=== PATIENT | male | born 1940 | race Caucasian/White ===

== ENCOUNTER 2017-06-15 11:19 | Emergency (ER) | payer MEDICARE ==
[~2017-06-15] VITALS: Ht 170.2 cm; Wt 78.2 kg
[2017-06-15] MEDS ORDERED: FUROSEMIDE40 MG PO (11:51)
[2017-06-15] MEDS ORDERED: CLOPIDOGREL75 MG PO (11:51)
[2017-06-15] MEDS ORDERED: CARVEDILOL25 MG PO (11:53)
[2017-06-15] MEDS ORDERED: LIPITOR20 MG PO (11:53)
[2017-06-15] MEDS ORDERED: ADVAIR DISK1 IN (11:54)
[2017-06-15] MEDS ORDERED: ENALAPRIL10 MG PO (11:54)
[2017-06-15] MEDS ORDERED: ALLOPURINOL100 MG PO (11:54)
[2017-06-15] MEDS ORDERED: VITAMIN B-12500 MCG PO (11:55)
[2017-06-15] MEDS ORDERED: [UNRECOGNIZED DRUG - OTHER] PO (11:57)
[2017-06-15] MEDS ORDERED: VITAMIN C500 M6 PO (11:57)
[2017-06-15] MEDS ORDERED: MAGNESIUM PO (11:57)
[2017-06-15] MEDS ORDERED: GLUCOSAMINE PO (11:58)
[2017-06-15] MEDS ORDERED: CHO PO (11:58)
[2017-06-15 12:31] LABS: URINE BILIRUBIN - DIPSTICK NEGATIVE (NEGATIVE); URINE BLOOD DIPSTICK NEGATIVE (NEGATIVE); URINE COLOR YELLOW; URINE GLUCOSE - DIPSTICK NEGATIVE (NEGATIVE); URINE KETONE TRACE mg/dL (NEGATIVE); URINE LEUK ESTERASE TRACE (NEGATIVE); URINE NITRITE - DIPSTICK NEGATIVE (Negative); URINE PROTEIN - DIPSTICK NEGATIVE (NEG-TRACE); URINE UROBILINOGEN - DIPSTICK 0.2 E.U./dL (0.2)
[2017-06-15 12:33] LABS: HEMATOCRIT 31.3 % (39.0-50.0); HEMOGLOBIN 10.4 g/dl (14.0-18.0); IMMATURE GRANULOCYTES 0.2 % (0.0-1.0); MEAN CORPUSCULAR HGB 31.2 pG CALC (26.0-32.0); MEAN CORPUSCULAR HGB CONC 33.2 g/L CALC (32.0-36.0); NEUT# 4.51 thou/uL (1.82-7.42); RED BLOOD COUNT 3.33 mill/uL (4.70-6.10); RED CELL DISTRI WIDTH 14.1 % (11.5-15.5); URINE CLARITY CLEAR
[2017-06-15 12:44] LABS: ALBUMIN 3.7 g/dL (3.2-5.0); ALKALINE PHOSPHATASE 123 u/l (38-126); ANION GAP 17 (6-22 (CALC)); BILIRUBIN, TOTAL 0.4 mg/dL (0.0-1.4); BUN 22 mg/dL (8-23); BUN/CREATININE RATIO 18 (12-20 (CALC)); CARBON DIOXIDE 22 mmol/l (22-30); CHLORIDE 105 mmol/l (95-108); CREATININE 1.3 mg/dL (0.7-1.3); GFR 54 ML/MIN (>=60 (CALC)); GFR FOR AFR.AMER. > 60 ML/MIN (>=60 (CALC)); POTASSIUM 4.3 mmol/l (3.5-5.1); SGOT/AST 28 u/l (19-48); SGPT/ALT 43 u/l (11-66); SODIUM 140 mmol/l (137-146); TOTAL PROTEIN 6.5 g/dL (6.3-8.2)
[2017-06-15] MEDS ORDERED: POTASSIUM CHLO20 ME1 PO (13:10)
[2017-06-15] MEDS ORDERED: LASIX 40 MG TAB40 MG PO (13:10)
[2017-06-15 13:37] VITALS: BP 128/56
== END 2017-06-15 13:35 | disposition home or self-care (01) ==
LOC: ED 11:19
PROVIDERS: Family Medicine
DX: I11.0 Hypertensive heart disease with heart failure (principal); I50.9 Heart failure, unspecified; M10.9 Gout, unspecified; J44.9 Chronic obstructive pulmonary disease, unspecified; Z95.0 Presence of cardiac pacemaker

== ENCOUNTER 2019-02-05 18:58 | Emergency (ER) | payer MEDICARE ==
[~2019-02-05] VITALS: Ht 170.2 cm; Wt 80.0 kg
[~2019-02-05 18:58] MED LIST: ADVAIR DISK1 IN; ALLOPURINOL100 MG PO; CARVEDILOL25 MG PO; CHO PO; CLOPIDOGREL75 MG PO; ENALAPRIL10 MG PO; FUROSEMIDE40 MG PO; GLUCOSAMINE PO; LASIX 40 MG TAB40 MG PO; LIPITOR20 MG PO; MAGNESIUM PO; POTASSIUM CHLO20 ME1 PO; VITAMIN B-12500 MCG PO; VITAMIN C500 M6 PO; [UNRECOGNIZED DRUG - OTHER] PO
[2019-02-05] MEDS ORDERED: KEFLEX500 MG PO (19:44)
[2019-02-05 20:06] VITALS: BP 125/53
== END 2019-02-05 20:12 | disposition home or self-care (01) ==
LOC: ED 18:58
DX: L73.9 Follicular disorder, unspecified (principal); I88.9 Nonspecific lymphadenitis, unspecified; J44.9 Chronic obstructive pulmonary disease, unspecified; I11.0 Hypertensive heart disease with heart failure; I50.9 Heart failure, unspecified; Z95.810 Presence of automatic (implantable) cardiac defibrillator

== ENCOUNTER 2019-04-25 17:42 | Emergency (ER) | payer MEDICARE ==
[~2019-04-25 17:42] MED LIST changes: +KEFLEX500 MG PO
[2019-04-25 18:24] VITALS: BP 142/50
== END 2019-04-25 19:10 | disposition left against medical advice (07) ==
LOC: ED 17:42 → LWOBS 19:10
DX: Z53.21 Procedure and treatment not carried out due to patient leaving prior to being seen by health care provider (principal)

== ENCOUNTER 2022-02-11 16:01 | Inpatient (IN) | payer MEDICARE ==
[~2022-02-11] VITALS: Ht 170.2 cm; Wt 74.0 kg
[~2022-02-11 16:01] MED LIST changes: -FUROSEMIDE40 MG PO; +LASIX40 MG PO; +MAGNESIUM 400 M1 TAB; -MAGNESIUM PO; -[UNRECOGNIZED DRUG - OTHER] PO
[2022-02-11 16:37] VITALS: BP 143/62
[2022-02-11] MEDS ORDERED: AZELASTINE HCL0.1 % (18:16)
[2022-02-11] MEDS ORDERED: ASPIRIN81 MG PO (18:19)
[2022-02-11] MEDS ORDERED: ENTRESTO 24-261 TAB PO (18:20)
[2022-02-11] MEDS ORDERED: EZETIMIBE10 MG PO (18:21)
[2022-02-11] MEDS ORDERED: FERRAPLUS 90 PO (18:24)
[2022-02-11] MEDS ORDERED: UNISOM SLEEP25 MG PO (18:25)
[2022-02-11] MEDS ORDERED: VITAMIN D31000 UNI1 PO (18:26)
[2022-02-11 19:00] VITALS: BP 129/52
[2022-02-11 21:28] LABS: HEMATOCRIT 31.9 % (39.0-50.0); HEMOGLOBIN 10.6 g/dl (14.0-18.0); MEAN CELL VOLUME 97.6 fL CALC (80.0-100.0); MEAN CORPUSCULAR HGB 32.4 pG CALC (26.0-32.0); MEAN CORPUSCULAR HGB CONC 33.2 g/dL CAL (32.0-36.0); RED BLOOD COUNT 3.27 mill/uL (4.70-6.10)
[2022-02-12] VITALS: BP 146/63
[2022-02-12 03:35] VITALS: BP 147/69
[2022-02-12 06:09] LABS: ALBUMIN 3.5 g/dL (3.2-5.0); BILIRUBIN, TOTAL 0.5 mg/dL (0.0-1.4); CREATININE 1.6 mg/dL (0.7-1.3); MAGNESIUM 2.3 mg/dL (1.6-2.3); POTASSIUM 4.3 mmol/l (3.5-5.1)
[2022-02-12 06:59] VITALS: BP 135/52
[2022-02-12 10:51] VITALS: BP 113/36
[2022-02-12 17:11] VITALS: BP 135/58
[2022-02-12 18:56] VITALS: BP 134/47
[2022-02-13 00:21] VITALS: BP 126/43
[2022-02-13 05:11] VITALS: BP 127/49
[2022-02-13 06:10] LABS: CREATININE 1.7 mg/dL (0.7-1.3); MAGNESIUM 2.1 mg/dL (1.6-2.3); POTASSIUM 4.1 mmol/l (3.5-5.1)
[2022-02-13 06:48] VITALS: BP 152/61
[2022-02-13] MEDS ORDERED: BUMETANIDE2 MG IN (09:30)
[2022-02-13 10:05] VITALS: BP 138/70
== END 2022-02-13 13:35 | disposition home or self-care (01) | DRG 291 ==
LOC: MS2 16:01
PROVIDERS: Internal Medicine Nephrology; ADMIT Internal Medicine; ATTEND Internal Medicine
DX: I13.0 Hypertensive heart and chronic kidney disease with heart failure and stage 1 through stage 4 chronic kidney disease, or unspecified chronic kidney disease (principal); I50.23 Acute on chronic systolic (congestive) heart failure; N17.9 Acute kidney failure, unspecified; N18.30 Chronic kidney disease, stage 3 unspecified; D63.1 Anemia in chronic kidney disease; I25.10 Atherosclerotic heart disease of native coronary artery without angina pectoris; I25.5 Ischemic cardiomyopathy; E78.5 Hyperlipidemia, unspecified; I73.9 Peripheral vascular disease, unspecified; I25.2 Old myocardial infarction; Z95.820 Peripheral vascular angioplasty status with implants and grafts; Z87.891 Personal history of nicotine dependence; Z95.5 Presence of coronary angioplasty implant and graft; Z95.810 Presence of automatic (implantable) cardiac defibrillator; J43.1 Panlobular emphysema
CPT/HCPCS: J1756

== ENCOUNTER 2022-03-21 12:33 | Inpatient (IN) | payer MEDICARE ==
[~2022-03-21] VITALS: Ht 170.2 cm; Wt 82.6 kg
[~2022-03-21 12:33] MED LIST changes: +ASPIRIN81 MG PO; +AZELASTINE HCL0.1 %; +BUMETANIDE2 MG IN; +ENTRESTO 24-261 TAB PO; +EZETIMIBE10 MG PO; +FERRAPLUS 90 PO; +UNISOM SLEEP25 MG PO; +VITAMIN D31000 UNI1 PO
[2022-03-21 12:45] VITALS: BP 120/60
[2022-03-21 13:26] LABS: BASO% 0.5 % (0-3); EOS% 2.2 % (0-8); HEMATOCRIT 28.6 % (39.0-50.0); HEMOGLOBIN 9.8 g/dl (14.0-18.0); IMMATURE GRANULOCYTES 0.2 % (0.0-5.0); LYMPH% 7.8 % (15-41); MEAN CELL VOLUME 95.7 fL CALC (80.0-100.0); MEAN CORPUSCULAR HGB 32.8 pG CALC (26.0-32.0); MEAN CORPUSCULAR HGB CONC 34.3 g/dL CAL (32.0-36.0); MONO% 8.8 % (2-13); NEUT# 5.14 thou/uL (1.82-7.42); NEUT% 80.5 % (42-76); RED BLOOD COUNT 2.99 mill/uL (4.70-6.10); RED CELL DISTRI WIDTH 14.8 % (11.5-15.5)
[2022-03-21 14:43] LABS: ALBUMIN 3.7 g/dL (3.2-5.0); BILIRUBIN, TOTAL 0.5 mg/dL (0.0-1.4); CREATININE 2.3 mg/dL (0.7-1.3); POTASSIUM 4.4 mmol/l (3.5-5.1); TOTAL PROTEIN 6.1 g/dL (6.3-8.2)
[2022-03-21 18:26] LABS: URINE BILIRUBIN - DIPSTICK NEGATIVE (NEGATIVE); URINE BLOOD DIPSTICK NEGATIVE (NEGATIVE); URINE COLOR YELLOW; URINE GLUCOSE - DIPSTICK NEGATIVE (NEGATIVE); URINE KETONE NEGATIVE (NEGATIVE); URINE LEUK ESTERASE MODERATE (NEGATIVE); URINE NITRITE - DIPSTICK NEGATIVE (Negative); URINE PH 5.5 (4.5-8.0); URINE PROTEIN - DIPSTICK NEGATIVE (NEG-TRACE); URINE SPECIFIC GRAVITY 1.015; URINE UROBILINOGEN - DIPSTICK 0.2 E.U./dL (0.2)
[2022-03-21 18:32] LABS: URINE TRANSITIONAL EPI. CELLS RARE hpf; URINE WBC 0-2 WBC/hpf (0-5)
[2022-03-21 20:00] VITALS: BP 135/69
[2022-03-21 20:21] VITALS: BP 135/69
[2022-03-22] VITALS (8 sets, daily range): BP systolic 99–147; BP diastolic 47–96
[2022-03-22 05:37] LABS: BASO% 0.5 % (0-3); EOS% 2.4 % (0-8); HEMATOCRIT 27.7 % (39.0-50.0); HEMOGLOBIN 9.7 g/dl (14.0-18.0); IMMATURE GRANULOCYTES 0.3 % (0.0-5.0); LYMPH% 10.2 % (15-41); MEAN CELL VOLUME 95.2 fL CALC (80.0-100.0); MEAN CORPUSCULAR HGB 33.3 pG CALC (26.0-32.0); MONO% 11.9 % (2-13); NEUT# 4.88 thou/uL (1.82-7.42); NEUT% 74.7 % (42-76); RED BLOOD COUNT 2.91 mill/uL (4.70-6.10); RED CELL DISTRI WIDTH 14.7 % (11.5-15.5)
[2022-03-22 05:45] LABS: ALBUMIN 3.4 g/dL (3.2-5.0); BILIRUBIN, TOTAL 0.3 mg/dL (0.0-1.4); CREATININE 2.3 mg/dL (0.7-1.3); POTASSIUM 4.5 mmol/l (3.5-5.1); TOTAL PROTEIN 5.5 g/dL (6.3-8.2)
[2022-03-23 04:00] VITALS: BP 121/56
[2022-03-23 04:18] VITALS: BP 121/56
[2022-03-23 06:41] VITALS: BP 120/58
[2022-03-23 14:21] LABS: CREATININE 2.3 mg/dL (0.7-1.3); POTASSIUM 4.9 mmol/l (3.5-5.1)
[2022-03-23 16:10] VITALS: BP 140/65
[2022-03-23 18:58] VITALS: BP 124/65
[2022-03-24] VITALS (9 sets, daily range): BP systolic 111–132; BP diastolic 43–66
[2022-03-24 05:28] LABS: BASO% 0.5 % (0-3); HEMATOCRIT 27.7 % (39.0-50.0); HEMOGLOBIN 9.6 g/dl (14.0-18.0); IMMATURE GRANULOCYTES 0.2 % (0.0-5.0); LYMPH% 9.9 % (15-41); MEAN CELL VOLUME 94.9 fL CALC (80.0-100.0); MEAN CORPUSCULAR HGB 32.9 pG CALC (26.0-32.0); MEAN CORPUSCULAR HGB CONC 34.7 g/dL CAL (32.0-36.0); MONO% 12.1 % (2-13); NEUT# 4.48 thou/uL (1.82-7.42); NEUT% 75.3 % (42-76); RED BLOOD COUNT 2.92 mill/uL (4.70-6.10); RED CELL DISTRI WIDTH 14.6 % (11.5-15.5)
[2022-03-24 05:53] LABS: ALBUMIN 3.3 g/dL (3.2-5.0); CREATININE 2.3 mg/dL (0.7-1.3); TOTAL PROTEIN 5.7 g/dL (6.3-8.2)
[2022-03-24 05:54] LABS: BILIRUBIN, TOTAL 0.5 mg/dL (0.0-1.4); POTASSIUM 3.9 mmol/l (3.5-5.1)
[2022-03-25 06:03] LABS: BASO% 0.5 % (0-3); EOS% 3.1 % (0-8); HEMATOCRIT 28.5 % (39.0-50.0); HEMOGLOBIN 10.1 g/dl (14.0-18.0); IMMATURE GRANULOCYTES 0.2 % (0.0-5.0); LYMPH% 10.2 % (15-41); MEAN CELL VOLUME 96.3 fL CALC (80.0-100.0); MEAN CORPUSCULAR HGB 34.1 pG CALC (26.0-32.0); MEAN CORPUSCULAR HGB CONC 35.4 g/dL CAL (32.0-36.0); MONO% 11.7 % (2-13); NEUT# 4.57 thou/uL (1.82-7.42); NEUT% 74.3 % (42-76); RED BLOOD COUNT 2.96 mill/uL (4.70-6.10); RED CELL DISTRI WIDTH 14.9 % (11.5-15.5)
[2022-03-25 06:14] LABS: ALBUMIN 3.8 g/dL (3.2-5.0); BILIRUBIN, TOTAL 0.6 mg/dL (0.0-1.4); CREATININE 2.8 mg/dL (0.7-1.3); POTASSIUM 3.4 mmol/l (3.5-5.1); TOTAL PROTEIN 6.2 g/dL (6.3-8.2)
[2022-03-25 07:25] VITALS: BP 141/66
[2022-03-25 10:42] VITALS: BP 125/60
[2022-03-25 15:22] VITALS: BP 132/78
[2022-03-26 05:57] LABS: BASO% 0.4 % (0-3); HEMATOCRIT 27.3 % (39.0-50.0); HEMOGLOBIN 9.5 g/dl (14.0-18.0); IMMATURE GRANULOCYTES 0.1 % (0.0-5.0); LYMPH% 9.9 % (15-41); MEAN CELL VOLUME 95.1 fL CALC (80.0-100.0); MEAN CORPUSCULAR HGB 33.1 pG CALC (26.0-32.0); MEAN CORPUSCULAR HGB CONC 34.8 g/dL CAL (32.0-36.0); MONO% 11.8 % (2-13); NEUT% 74.8 % (42-76); RED BLOOD COUNT 2.87 mill/uL (4.70-6.10); RED CELL DISTRI WIDTH 14.9 % (11.5-15.5)
[2022-03-26 06:23] LABS: ALBUMIN 3.6 g/dL (3.2-5.0); BILIRUBIN, TOTAL 0.3 mg/dL (0.0-1.4); CREATININE 2.7 mg/dL (0.7-1.3); POTASSIUM 2.9 mmol/l (3.5-5.1)
[2022-03-26 06:50] VITALS: BP 138/70
[2022-03-26 10:48] VITALS: BP 119/43
[2022-03-26 16:53] VITALS: BP 145/65
[2022-03-26 19:32] VITALS: BP 130/47
[2022-03-27] VITALS (41 sets, daily range): BP systolic 106–175; BP diastolic 46–135
[2022-03-27 06:03] LABS: BASO% 0.4 % (0-3); EOS% 2.5 % (0-8); HEMATOCRIT 29.2 % (39.0-50.0); HEMOGLOBIN 9.8 g/dl (14.0-18.0); IMMATURE GRANULOCYTES 0.1 % (0.0-5.0); LYMPH% 8.8 % (15-41); MEAN CELL VOLUME 95.4 fL CALC (80.0-100.0); MEAN CORPUSCULAR HGB CONC 33.6 g/dL CAL (32.0-36.0); MONO% 11.5 % (2-13); NEUT# 5.15 thou/uL (1.82-7.42); NEUT% 76.7 % (42-76); RED BLOOD COUNT 3.06 mill/uL (4.70-6.10); RED CELL DISTRI WIDTH 14.9 % (11.5-15.5)
[2022-03-27 06:11] LABS: ALBUMIN 3.8 g/dL (3.2-5.0); CREATININE 2.6 mg/dL (0.7-1.3); TOTAL PROTEIN 6.2 g/dL (6.3-8.2)
[2022-03-27 06:12] LABS: BILIRUBIN, TOTAL 0.5 mg/dL (0.0-1.4); POTASSIUM 3.5 mmol/l (3.5-5.1)
[2022-03-28] VITALS (43 sets, daily range): BP systolic 67–176; BP diastolic 48–85
[2022-03-28 06:33] LABS: HEMATOCRIT 30.4 % (39.0-50.0); HEMOGLOBIN 9.9 g/dl (14.0-18.0); MEAN CELL VOLUME 98.1 fL CALC (80.0-100.0); MEAN CORPUSCULAR HGB 31.9 pG CALC (26.0-32.0); MEAN CORPUSCULAR HGB CONC 32.6 g/dL CAL (32.0-36.0); RED BLOOD COUNT 3.1 mill/uL (4.70-6.10); RED CELL DISTRI WIDTH 15.1 % (11.5-15.5)
[2022-03-28 06:42] LABS: ALBUMIN 3.9 g/dL (3.2-5.0); ALKALINE PHOSPHATASE 134 u/l (38-126); ANION GAP 13 (6-22 (CALC)); BILIRUBIN, TOTAL 0.5 mg/dL (0.0-1.4); BUN 74 mg/dL (8-23); BUN/CREATININE RATIO 28 (12-20 (CALC)); CARBON DIOXIDE 30 mmol/l (22-30); CHLORIDE 94 mmol/l (95-108); CREATININE 2.7 mg/dL (0.7-1.3); GFR FOR AFR.AMER. 28 ML/MIN (>=60 (CALC)); GFR OTHER RACES 23 ML/MIN (>=60 (CALC)); MAGNESIUM 2.3 mg/dL (1.6-2.3); POTASSIUM 3.6 mmol/l (3.5-5.1); SGOT/AST 40 u/l (19-48); SODIUM 133 mmol/l (137-146); TOTAL PROTEIN 6.3 g/dL (6.3-8.2)
[2022-03-29] VITALS (66 sets, daily range): BP systolic 73–152; BP diastolic 39–109
[2022-03-29 06:07] LABS: ALBUMIN 3.5 g/dL (3.2-5.0); BILIRUBIN, TOTAL 0.5 mg/dL (0.0-1.4); CREATININE 2.9 mg/dL (0.7-1.3); MAGNESIUM 2.4 mg/dL (1.6-2.3); POTASSIUM 3.1 mmol/l (3.5-5.1); TOTAL PROTEIN 5.8 g/dL (6.3-8.2)
[2022-03-29 06:10] LABS: HEMATOCRIT 28.9 % (39.0-50.0); HEMOGLOBIN 9.5 g/dl (14.0-18.0); MEAN CELL VOLUME 97.6 fL CALC (80.0-100.0); MEAN CORPUSCULAR HGB 32.1 pG CALC (26.0-32.0); MEAN CORPUSCULAR HGB CONC 32.9 g/dL CAL (32.0-36.0); RED BLOOD COUNT 2.96 mill/uL (4.70-6.10)
[2022-03-30] VITALS (69 sets, daily range): BP systolic 60–157; BP diastolic 34–114
[2022-03-30 06:02] LABS: BASO% 0.3 % (0-3); EOS% 2.2 % (0-8); HEMATOCRIT 28.9 % (39.0-50.0); HEMOGLOBIN 9.5 g/dl (14.0-18.0); IMMATURE GRANULOCYTES 0.3 % (0.0-5.0); LYMPH% 5.8 % (15-41); MEAN CELL VOLUME 98.6 fL CALC (80.0-100.0); MEAN CORPUSCULAR HGB 32.4 pG CALC (26.0-32.0); MEAN CORPUSCULAR HGB CONC 32.9 g/dL CAL (32.0-36.0); MONO% 10.9 % (2-13); NEUT# 6.2 thou/uL (1.82-7.42); NEUT% 80.5 % (42-76); RED BLOOD COUNT 2.93 mill/uL (4.70-6.10)
[2022-03-30 06:04] LABS: ALBUMIN 3.7 g/dL (3.2-5.0); BILIRUBIN, TOTAL 0.4 mg/dL (0.0-1.4); CREATININE 3.4 mg/dL (0.7-1.3); MAGNESIUM 2.5 mg/dL (1.6-2.3); TOTAL PROTEIN 6.2 g/dL (6.3-8.2)
[2022-03-30 06:24] LABS: POTASSIUM 3.8 mmol/l (3.5-5.1)
[2022-03-31] VITALS (14 sets, daily range): BP systolic 88–136; BP diastolic 48–89
[2022-03-31 05:34] LABS: HEMATOCRIT 29.9 % (39.0-50.0); HEMOGLOBIN 9.9 g/dl (14.0-18.0); MEAN CELL VOLUME 96.8 fL CALC (80.0-100.0); MEAN CORPUSCULAR HGB CONC 33.1 g/dL CAL (32.0-36.0); RED BLOOD COUNT 3.09 mill/uL (4.70-6.10); RED CELL DISTRI WIDTH 15.3 % (11.5-15.5)
[2022-03-31 05:43] LABS: ALBUMIN 3.6 g/dL (3.2-5.0); BILIRUBIN, TOTAL 0.4 mg/dL (0.0-1.4); CREATININE 3.6 mg/dL (0.7-1.3); MAGNESIUM 2.6 mg/dL (1.6-2.3); POTASSIUM 3.9 mmol/l (3.5-5.1); TOTAL PROTEIN 5.9 g/dL (6.3-8.2)
== END 2022-03-31 13:30 | disposition home or self-care (01) | DRG 291 ==
LOC: ED 12:33 → ED-I 17:20 → ED 17:30 → MS2 17:31 → ICU 03-22 06:23
PROVIDERS: Internal Medicine; Internal Medicine Nephrology; Nurse Practitioner; Nurse Practitioner Family; ADMIT Internal Medicine; ATTEND Internal Medicine
PROC: 02HV33Z Insertion of Infusion Device into Superior Vena Cava, Percutaneous Approach (ICD-10-PCS; principal; 2022-03-27)
PROC: B548ZZA Ultrasonography of Superior Vena Cava, Guidance (ICD-10-PCS; 2022-03-27)
DX: I13.0 Hypertensive heart and chronic kidney disease with heart failure and stage 1 through stage 4 chronic kidney disease, or unspecified chronic kidney disease (principal); I50.23 Acute on chronic systolic (congestive) heart failure; J18.9 Pneumonia, unspecified organism; E87.1 Hypo-osmolality and hyponatremia; N39.0 Urinary tract infection, site not specified; N17.9 Acute kidney failure, unspecified; E86.9 Volume depletion, unspecified; T50.1X5A Adverse effect of loop [high-ceiling] diuretics, initial encounter; N18.31 Chronic kidney disease, stage 3a; I25.10 Atherosclerotic heart disease of native coronary artery without angina pectoris; E87.6 Hypokalemia; D63.1 Anemia in chronic kidney disease; I73.9 Peripheral vascular disease, unspecified; I25.5 Ischemic cardiomyopathy; E78.5 Hyperlipidemia, unspecified; I25.2 Old myocardial infarction; Z95.810 Presence of automatic (implantable) cardiac defibrillator; B96.89 Other specified bacterial agents as the cause of diseases classified elsewhere; Z95.5 Presence of coronary angioplasty implant and graft; Z95.828 Presence of other vascular implants and grafts; Z95.820 Peripheral vascular angioplasty status with implants and grafts; Z87.891 Personal history of nicotine dependence
CPT/HCPCS: J1250; Q5106 EC